=== PATIENT | male | born 1990 | race Caucasian/White ===

== ENCOUNTER 2018-02-07 23:11 | Emergency (ER) | payer OTHER ==
[~2018-02-07] VITALS: Ht 182.9 cm; Wt 80.9 kg
[~2018-02-07 23:11] MED LIST: NO HOME MEDICATIONS
[2018-02-08] MEDS ORDERED: NORCO 325 MG-51 TA1 PO (01:46)
[2018-02-08 02:01] VITALS: BP 119/74
== END 2018-02-08 02:01 | disposition home or self-care (01) ==
LOC: ED 23:11
DX: S61.210A Laceration without foreign body of right index finger without damage to nail, initial encounter (principal); W31.1XXA Contact with metalworking machines, initial encounter; Z23 Encounter for immunization; Z88.0 Allergy status to penicillin
CPT/HCPCS: 90715

== ENCOUNTER → 2020-04-25 | Outpatient (CLI) | payer BC ==
[~2020-04-25] MED LIST changes: +NORCO 325 MG-51 TA1 PO
== END ==
LOC: VAS 15:00 → RAD 15:00
DX: M25.561 Pain in right knee (principal); M79.604 Pain in right leg

== ENCOUNTER 2023-08-26 07:45 | Outpatient (RCR) | payer OTHER | END 2023-09-23 | disposition home or self-care (01) | LOC: PT | DX: S89.81XD Other specified injuries of right lower leg, subsequent encounter (principal); S83.281D Other tear of lateral meniscus, current injury, right knee, subsequent encounter; S83.241D Other tear of medial meniscus, current injury, right knee, subsequent encounter; X58.XXXD Exposure to other specified factors, subsequent encounter ==